=== PATIENT | male | born 1965 | race Caucasian/White ===

== ENCOUNTER 2020-10-17 06:37 | Emergency (ER) | payer BC ==
[~2020-10-17] VITALS: Ht 182.9 cm; Wt 79.4 kg
== END 2020-10-17 12:10 | disposition home or self-care (01) ==
LOC: ER1 06:37
DX: Z23 Encounter for immunization (principal); U07.1 COVID-19; Z79.899 Other long term (current) drug therapy
CPT/HCPCS: 99283; M0243

== ENCOUNTER → 2021-07-17 | Outpatient (CLI) | payer BC ==
[2021-07-17 12:51] LABS: HEMOGLOBIN 11.8 gm/dl (14.0-17.5); RED BLOOD COUNT 3.92 M/UL (4.20-5.50); WHITE BLOOD COUNT 7.7 K/UL (4.5-11.0)
[2021-07-17 13:31] LABS: BUN/CREATININE RATIO 15 (0-10)
== END ==
LOC: LAB 12:00
PROVIDERS: Internal Medicine Hematology & Oncology
DX: C91.10 Chronic lymphocytic leukemia of B-cell type not having achieved remission (principal); Z20.5 Contact with and (suspected) exposure to viral hepatitis
CPT/HCPCS: 36415; 80053; 83010; 83615; 85025; 85045